=== PATIENT | male | born 1965 | race Caucasian/White ===

== ENCOUNTER 2018-08-25 08:51 | Day surgery (SDC) | payer BC ==
[~2018-08-25 08:51] MED LIST: CEFAZOLIN 1G VIAL IVP ONE; CEFAZOLIN 2 Gram 2 GM/50 ML BAG IVPB ONE
[2018-08-25] MEDS ORDERED: MORPHINE SULFATE PF 10MG/10ML *10ML VIAL IV ONE (08:52)
[2018-08-25] MEDS ORDERED: KETOROLAC 30 MG/ML VIAL IVP ONE (08:52)
[2018-08-25] MEDS ORDERED: BUPIVACAINE LIPOSOME/PF 133MG/10ML VIAL IV ONE (08:52)
[2018-08-25] MEDS ORDERED: GLYCOPYRROLATE 0.2 MG/ML ML IV ONE (08:52)
[2018-08-25] MEDS ORDERED: MIDAZOLAM HCL 2MG/2ML VIAL IV ONE (08:52)
[2018-08-25] MEDS ORDERED: BUPIVACAINE 0.5% (5MG/ML) PF 30ML VIAL IVP ONE (08:52)
[2018-08-25] MEDS ORDERED: PROPOFOL 10 MG/ML VIAL IV ONE (08:52)
[2018-08-25] MEDS ORDERED: KETAMINE HCL 100MG/1ML VIAL INJ ONE (08:52)
[2018-08-25] MEDS ORDERED: DEXAMETHASONE 4 MG/ML 1ML VIAL IVP ONE (08:52)
[2018-08-25] MEDS ORDERED: RINGERS SOLUTION,LACTATED 1,000 ML IV ONE ×2 (09:30→11:39)
[2018-08-25] MEDS ORDERED: BUPIVACAINE 0.5% W/EPI MPF 30 ML VIAL SQ ONE (11:50)
[2018-08-25] MEDS ORDERED: METHYLPREDNISOLONE 40MG/VIAL IM ONE ×2 (11:51)
[2018-08-25] MEDS ORDERED: MORPHINE SULFATE 5 MG/ML VIAL IM ONE (12:30)
--- NOTE | 2018-08-26 08:50 | Operative Note ---
DATE OF SURGERY: 08/25/2018 PREOPERATIVE DIAGNOSIS: Left shoulder impingement. POSTOPERATIVE DIAGNOSES: 1. Large posterosuperior labral tear. 2. Profound left shoulder external impingement. 3. Arthrosis left distal clavicle. OPERATION: 1. Left shoulder arthroscopy with interarticular debridement. 2. Left shoulder open acromioplasty, CA ligament resection, subacromial bursectomy. 3. Left shoulder distal clavicle resection. STAFF SURGEON: Mehdi Lewis MD ANESTHESIA: Block with sedation. PREPARATION: Chloraprep. INDIVIDUAL CONSIDERATIONS: None. PROCEDURE: The patient was taken to the operating room, placed supine on the operating room table. He had a successful induction of a cervical block. He was then placed in a semi-seated beach chair position, given sedation, and prepped and draped in the usual fashion. Examination under anesthesia showed no instability, good motion. A posterior portal was identified. Skin was infiltrated with 0.5% Marcaine with epinephrine prior. An 18-gauge spinal needle was easily placed in the joint, and the joint was inflated with normal saline. A stab wound was made, and a blunt-tipped trocar for the scope was placed in the joint. The joint was again inflated with normal saline. An anterior accessory portal was then made just inferior to the intact long head of the biceps tendon in a retrograde fashion with a Wissinger john, and the joint was irrigated out. The patient had a large flap tear involving the posterosuperior aspect of the labrum. Long head was intact. Glenohumeral joint was normal. Remaining labrum was normal. Subscap tendon was normal. Rotator cuff underneath was normal. No synovitis or loose bodies seen in the inferior pouch. After irrigation, portals were closed with marilee. The patient had an anterior approach to the subacromial space and distal clavicle. Skin was again infiltrated with 0.5% Marcaine with epinephrine prior. Sharp dissection carried down through skin and subcutaneous tissues. Small veins were coagulated with a Bovie. An anterior deltoid interval was developed. Care was taken not to split the deltoid more than about 4 cm distal to the anterior tip of the acromion to prevent injury to the axillary nerve. Once in the subacromial space, there were huge spurs at the AC joint, a very thick bursa, and large spurs at the acromioclavicular joint. The deltoid was then taken subperiosteally off the anterior aspect of the acromion, over the top of the intact CA ligament, and off the anterior aspect of the degenerated distal clavicle. CA ligament was resected with a Bovie. Distal clavicle was resected with an oscillating saw taking about 1 cm. He had a downsloping acromion with spurs, and anterior acromioplasty was performed taking about a centimeter, most of this being spur, and tapering towards posteromedially to include the spurs at the AC joint. The undersurface was then smoothed off with a rasp. A very thick bursa was removed. The rotator cuff looked contused and scraped in some areas but there was nothing to repair. After irrigation, I placed the shoulder through a full range of motion to ensure no further impingement. The deltoid was reattached to the remaining acromion with multiple interrupted #2 Vicryl going directly through the bony acromion. The periosteal cuff of the distal clavicle was closed with running #2 Vicryl. Anterior deltoid interval was closed with running #1 Vicryl. Subcu was closed with 2-0 plus Vicryl and skin was closed with marilee. An 18-gauge spinal needle was placed into the subacromial space. It was injected with 10 mL of 0.5% Marcaine with epinephrine along with 40 mg of Depo-Medrol and 10 mg of morphine. A sterile bulky compressive dressing and sling were applied. The patient tolerated the procedure well. Needle and sponge counts were correct. Estimated blood loss was minimal. He was taken back to recovery room in good condition. There were no complications. JONATAN
== END 2018-08-25 13:05 | disposition home or self-care (01) ==
LOC: SUR 08:51
PROVIDERS: ATTEND Orthopaedic Surgery
DX: S43.432A Superior glenoid labrum lesion of left shoulder, initial encounter (principal); M19.012 Primary osteoarthritis, left shoulder
CPT/HCPCS: 29822; 23130; 23120; 01630; 64415; J1885; J0690; C9290; J3490; J1030; J7120